=== PATIENT | male | born 1960 | race Caucasian/White ===

== ENCOUNTER 2018-09-09 12:28 | Emergency (ER) | payer OTHER ==
[2018-09-09] MEDS ORDERED: NS 1,000 ML IV ONE (12:38)
[2018-09-09] MEDS ORDERED: ONDANSETRON 4 MG/2 ML VIAL IVP ONE (12:38)
--- NOTE | 2018-09-09 12:42 | EDPHY ---
H & P Stated Complaint: Abd pain, n/v Time Seen by Provider: 09/09/18 12:35 HPI/ROS: CHIEF COMPLAINT: Abdominal pain HISTORY OF PRESENT ILLNESS: 58-year-old male with medical /surgical history significant for gastric bypass surgery, perforated viscus, visiting from [place], ate breakfast this morning and shortly thereafter developed diffuse abdominal pain. His last oral intake was at noon today when he had continued pain. Positive nausea. No back pain. No chest pain. No dyspnea. No trauma. No genitalia pain. PRIMARY CARE PROVIDER:None locally , visiting from [place] REVIEW OF SYSTEMS: 10 systems reviewed and negative with the exception of the elements mentioned in the history of present illness PAST MEDICAL & SURGICAL HISTORY: Gastric bypass surgery. Perforated viscus. SOCIAL HISTORY:Visiting from [place] PHYSICAL EXAM (Prior to examination, patient consented to physical exam, hands were washed and my usual and customary physical exam procedures followed) 1) GENERAL: Well-developed, well-nourished, alert and oriented. Appears uncomfortable 2) HEAD: Normocephalic, atraumatic 3) HEENT: Pupils equal, round, reactive to light bilaterally. Sclera anicteric. Nasopharynx, oropharynx, clear, no lesions. Moist Mucous membranes. 4) NECK: Full range of motion, no meningeal signs. 5) LUNGS: Clear auscultation bilaterally, no wheezes, no rhonchi, no retractions. 6) HEART: Regular rate and rhythm, no murmur, no heave, no gallop. 7) ABDOMEN: diffusely tender to palpation, guarding abdomen, 8) MUSCULOSKELETAL: Moving all extremities, no focal areas of tenderness, no obvious trauma. No peripheral edema or discoloration. 9) BACK: No CVA tenderness, no midline vertebral tenderness, no fluctuance, no step-off, no obvious trauma, no visual or palpable abnormality. 10) SKIN: No rash, no petechiae. 11) Psychiatric: Patient is oriented X 3, there is no agitation. DIFFERENTIAL DIAGNOSIS: In no particular order including but not limited to bowel obstruction, internal hernia, perforated viscus - Personal History Current Tetanus Diphtheria and Acellular Pertussis (TDAP): Yes - Medical/Surgical History Other PMH: gastric bypass. abd hernia. HTN - Social History Smoking Status: Never smoked Constitutional: Initial Vital Signs Temperature (C) 36.9 C 09/09/18 12:29 Heart Rate 58 L 09/09/18 12:29 Respiratory Rate 18 09/09/18 12:29 Blood Pressure 147/106 H 09/09/18 12:29 O2 Sat (%) 97 09/09/18 12:29 O2 Delivery Mode Room Air Allergies/Adverse Reactions: No Known Allergies Allergy (Unverified 09/09/18 12:36) Home Medications: Medication Instructions Recorded Propranolol HCl [Inderal 40mg (*)] 40 mg PO 09/09/18 Medical Decision Making - Diagnostics Imaging Results: Imaging Impressions Abdomen CT 09/09/18 12:38 Impression: 1. Suspect internal hernia, potentially involving the Sandra limb of patient's gastric bypass. Extensive mesenteric edema and trace free fluid. 2. 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 3. Right nephrolithiasis. Findings discussed with Emergency Department physician press assistant, Tiffany Chacon on 09/09/2018, 14:30. Images reviewed myself ED Course/Re-evaluation: 12:41 a.m.: Will obtain i-STAT creatinine plan on CT imaging the abdomen given his history of multiple abdominal surgeries, history of perforated viscus. I saw this patient independently based on established practice protocols. Care of patient under supervision of secondary supervising physician Dr Lopez with whom I discussed case at this time. 2:20 p.m.: Imaging interpreted by staff radiologist showing internal hernia with possible obstruction 2:21 p.m.: Re-evaluation, patient resting comfortably states that he is asymptomatic, no nausea, no vomiting, no abdominal pain 2:27 p.m.: Consultation with surgery Dr. Garcia who reviewed the patient's images and evaluate patient 3:25 p.m.: Dr. Garcia has evaluated the patient, see his consultation note. The patient is currently asymptomatic, no pain no nausea. Dr. Garcia has offered admission versus outpatient follow-up if patient is able tolerate oral intake without eliciting pain. Will attempt oral fluid challenge 4:00 p.m.: Re-evaluation, patient tolerating fluid without eliciting pain. He would like to be discharged. I have offered admission again however he states that he would like to start driving back to [place]. He has been given my usual and customary abdominal precautions instructions. Given copies of his laboratory studies. I recommend he contact his bariatric surgeon to be seen later this week (today is Sunday) - Data Points Laboratory Results: Laboratory Results 09/09/18 12:40 09/09/18 12:40 09/09/18 09/09/18 09/09/18 12:42 12:40 12:40 WBC 8.07 10^3/uL 10^3/uL (3.80-9.50) RBC 5.30 10^6/uL 10^6/uL (4.40-6.38) Hgb 14.7 g/dL g/dL (13.7-17.5) Hct 44.9 % % (40.0-51.0) MCV 84.7 fL fL (81.5-99.8) MCH 27.7 pg L pg (27.9-34.1) MCHC 32.7 g/dL g/dL (32.4-36.7) RDW 14.4 % % (11.5-15.2) Plt Count 269 10^3/uL 10^3/uL (150-400) MPV 11.5 fL fL (8.7-11.7) Neut % (Auto) 61.0 % % (39.3-74.2) Lymph % (Auto) 26.1 % % (15.0-45.0) [place] % (Auto) 8.2 % % (4.5-13.0) Eos % (Auto) 3.0 % % (0.6-7.6) Baso % (Auto) 1.5 % % (0.3-1.7) Nucleat RBC Rel Count 0.0 % % (0.0-0.2) Absolute Neuts (auto) 4.92 10^3/uL 10^3/uL (1.70-6.50) Absolute Lymphs (auto) 2.11 10^3/uL 10^3/uL (1.00-3.00) Absolute Monos (auto) 0.66 10^3/uL 10^3/uL (0.30-0.80) Absolute Eos (auto) 0.24 10^3/uL 10^3/uL (0.03-0.40) Absolute Basos (auto) 0.12 10^3/uL H 10^3/uL (0.02-0.10) Absolute Nucleated RBC 0.00 10^3/uL 10^3/uL (0-0.01) Immature Gran % 0.2 % % (0.0-1.1) Immature Gran # 0.02 10^3/uL 10^3/uL (0.00-0.10) Sodium 138 mEq/L mEq/L (135-145) Potassium 4.4 mEq/L mEq/L (3.3-5.0) Chloride 103 mEq/L mEq/L (97-110) Carbon Dioxide 24 mEq/l mEq/l (22-31) Anion Gap 11 mEq/L mEq/L (6-14) BUN 18 mg/dL mg/dL (7-23) Creatinine 1.2 mg/dL mg/dL (0.7-1.3) Estimated GFR > 60 Glucose 129 mg/dL H mg/dL (70-100) Calcium 9.7 mg/dL mg/dL (8.5-10.4) Total Bilirubin 0.9 mg/dL mg/dL (0.1-1.4) Conjugated Bilirubin 0.1 mg/dL mg/dL (0.0-0.5) Unconjugated Bilirubin 0.8 mg/dL mg/dL (0.0-1.1) AST 30 IU/L IU/L (17-59) ALT 31 IU/L IU/L (21-72) Alkaline Phosphatase 70 IU/L IU/L (38-126) POC Troponin I 0.01 ng/mL ng/mL (0.00-0.08) Total Protein 7.3 g/dL g/dL (6.3-8.2) Albumin 4.5 g/dL g/dL (3.5-5.0) Lipase 572 IU/L H IU/L (23-300) Medications Given: Discontinued Medications Hydromorphone HCl (Dilaudid) 0.5 mg IVP EDNOW ONE Stop: 09/09/18 12:54 Last Admin: 09/09/18 13:00 Dose: 0.5 mg Sodium Chloride (Ns) 1,000 mls @ 0 mls/hr IV EDNOW ONE; Wide Open PRN Reason: Protocol Stop: 09/09/18 12:39 Last Admin: 09/09/18 12:48 Dose: 1,000 mls Morphine Sulfate (Morphine) 4 mg IVP EDNOW ONE Stop: 09/09/18 12:39 Last Admin: 09/09/18 12:44 Dose: 4 mg Ondansetron HCl (Zofran) 4 mg IVP EDNOW ONE Stop: 09/09/18 12:39 Last Admin: 09/09/18 12:47 Dose: 4 mg Point of Care Test Results: Chemistry 09/09/18 12:42 POC Troponin I 0.01 ng/mL ng/mL (0.00-0.08) Departure - Departure Disposition: Home, Routine, Self-Care Clinical Impression: Abdominal pain Qualifiers: Abdominal location: generalized Qualified Code(s): R10.84 - Generalized abdominal pain Condition: Good Instructions: Acute Abdominal Pain (ED) Additional Instructions: Seek immediate medical attention if you develop new or worsening symptoms, if you develop fevers, chills, inability to tolerate oral intake or any other symptoms that concerns you. Recommend you follow up with your bariatric surgeon in [place] Referrals: Tomas Garcia MD [Medical Doctor] - As per Instructions (You may follow up with Dr. Garcia or follow up with your bariatric surgeon in [place])
[2018-09-09 12:45] LABS: PLATELET COUNT 269 10^3/uL (150-400)
[2018-09-09] MEDS ORDERED: IOPAMIDOL (ISOVUE-300) 100 ML BTL ONE (12:52)
[2018-09-09] MEDS ORDERED: HYDROmorphONE/DILAUDID 2 MG/ML INJ IVP ONE (12:53)
[2018-09-09 15:31] VITALS: BP 136/97
--- NOTE | 2018-09-09 17:02 | PDCONSULT ---
Choke Reamer Note: Chief complaint: Severe abdominal pain and nausea History of present illness colon This is a 58-year-old gentleman with a history of Sandra-en-Y gastric bypass over 8 years ago presents with onset of abdominal pain nausea and vomiting. Had a prior of perforation of marginal ulcer requiring Diony patch as well as small- bowel obstruction also need for feeding tube which was then surgically removed. The patient says his pain is similar to his bowel obstruction. He was told 3 years ago if this were to happen again he should seek immediate surgical consultation. He is visiting from [place]. His bariatric surgery is available for consultation if need be. CT scan of the abdomen and pelvis shows mesenteric inflammation however during the course of his ER stay the patient claims to have resolved his issues. He denies any current abdominal pain mildly sore and he does not feel nauseous or the need to vomit. Last bowel movement earlier today. Past medical history: Morbid obesity Past surgical history: Sandra-en-Y gastric bypass, multiple abdominal surgeries as a sequela of complications Denies smoking alcohol or drug use Family history noncontributory Home medication: Propranolol HCl [Inderal 40mg (*)] 40 mg PO 09/09/18 [Last Taken Unknown] No known drug allergies Review of systems otherwise negative Temp Pulse Resp BP Pulse Ox 36.8 C 64 16 136/97 H 96 09/09/18 15:29 09/09/18 15:29 09/09/18 15:29 09/09/18 15:29 09/09/18 15:29 Alert oriented no distress Sclerae anicteric Oropharynx moist normal dental no oropharyngeal lesions Trachea midline No cervical or supraclavicular adenopathy Regular rate and rhythm Clear to auscultation bilaterally Abdomen soft nontender nondistended well-healed upper midline laparotomy and other surgical scars Extremities without edema 2+ over 2+ femoral and dorsalis pedis pulses equal bilaterally Non focal neurologic exam Normal affect 09/09/18 12:40 09/09/18 12:40 Total Bilirubin 0.9 mg/dL (0.1-1.4) 09/09/18 12:40 Conjugated Bilirubin 0.1 mg/dL (0.0-0.5) 09/09/18 12:40 Unconjugated Bilirubin 0.8 mg/dL (0.0-1.1) 09/09/18 12:40 AST 30 IU/L (17-59) 09/09/18 12:40 ALT 31 IU/L (21-72) 09/09/18 12:[address] 09/09/18 12:38 Impression: 1. Suspect internal hernia, potentially involving the Sandra limb of patient's gastric bypass. Extensive mesenteric edema and trace free fluid. 2. 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 3. Right nephrolithiasis. Findings discussed with Emergency Department physician clerical assistant, Tiffany Chacon on 09/09/2018, 14:30. Impression/plan: Likely internal hernia which is resolved in terms of obstruction. Recommend dietary challenge. If he fails this admission to the hospital for observation possible small-bowel follow-through and surgical decompression. If he passes the challenge she can follow in the office with me or with his surgeon in [place]. All questions were answered. The patient and his are happy with this approach. Discussed with medical staff in the emergency room.
== END 2018-09-09 16:13 | disposition home or self-care (01) ==
DX: T82.898A Other specified complication of vascular prosthetic devices, implants and grafts, initial encounter (principal); R60.9 Edema, unspecified; N20.0 Calculus of kidney; E86.9 Volume depletion, unspecified; Z95.1 Presence of aortocoronary bypass graft; Z87.19 Personal history of other diseases of the digestive system
CPT/HCPCS: 84484-PO; 96374; J1170; J2270; J2405; Q9967